=== PATIENT | male | born 1960 | race Caucasian/White ===

== ENCOUNTER 2019-12-14 19:06 | Emergency (ER) | payer BC ==
[2019-12-14] MEDS ORDERED: Meclizine HCl 25 MG TAB ONE (19:47)
[2019-12-14 20:10] LABS: #Eosinphils 0.2 thou/uL (0.0-0.7); #Lymphocytes 1.6 thou/uL (1.20-3.40); #Monocytes 0.4 thou/uL (0.11-0.59); %Basophils 0.5 % (0.0-1.0); %Eosinophils 2.5 % (0.0-10.0); %Lymphocytes 22.3 % (21.0-51.0); %Monocytes 5.6 % (0.0-10.0); %Neutrophils 69.2 % (42.0-75.0); Hemoglobin 14.8 g/dL (14.0-18.0); Mean Corpuscular HGB CONC 34.6 g/dL (32.0-36.0); Mean Corpuscular Hemoglobin 32.3 pg (27.0-31.0); Mean Corpuscular Volume 93.5 fL (78.0-98.0); Mean Platelet Volume 6.8 fL (7.4-10.4); Platelet Count 213 thou/uL (130-400); RBC Distribution Width 11.2 % (11.5-14.5); Red Blood Cell (RBC) Count 4.59 mill/uL (4.70-6.10); White Blood Cell (WBC) Count 7.2 thou/uL (4.8-10.8)
--- NOTE | 2019-12-14 20:14 | CT ---
CT Brain WO Con History: Dizziness with blurred vision Comparison: None. Findings: No acute hemorrhage or infarct. No midline shift or mass effect. Very subtle increased dens ity along the left inferior temporal sulcus likely are due to vessels seen in profile and much less likely hemorrhage. Calvarium is intact. Mild mucosal thickening of the ethmoids. Mastoids are clear. Impression: 1. No acute infarct. 2. Mild ethmoid sinus disease. 3. Likely vessels seen in profile left inferior temporal sulcus axial image 11 and much less likely s ubarachnoid hemorrhage.
[2019-12-14 21:17] LABS: ALT (SGPT) 24 U/L (8-55); AST (SGOT) 16 U/L (5-34); Albumin 4.4 g/dL (3.4-4.8); Alkaline Phosphatase 43 U/L (40-110); Anion Gap 15 mmol/L (10-20); BUN (Urea Nitrogen) 16 mg/dL (8.4-25.7); Bilirubin, Total 0.6 mg/dL (0.2-1.2); Calc. Creatinine Clearance 0 mL/min (70-130); Calcium 9.1 mg/dL (7.8-10.44); Carbon Dioxide 22 mmol/L (23-31); Chloride 104 mmol/L (98-107); Estimated GFR-MDRD 79; Globulin 2.6 g/dL (2.4-3.5); Glucose 152 mg/dL (80-115); Potassium 3.8 mmol/L (3.5-5.1); Sodium 137 mmol/L (136-145)
== END 2019-12-14 21:52 | disposition home or self-care (01) ==
LOC: ERS 19:06
DX: H81.399 Other peripheral vertigo, unspecified ear (principal); I10 Essential (primary) hypertension; Z79.899 Other long term (current) drug therapy
CPT/HCPCS: 36415; 70450; 80053; 84484; 85025; 93005

== ENCOUNTER 2024-01-09 14:17 | Outpatient (CLI) | payer BC ==
[2024-01-09 15:58] LABS: #Basophils 0.05 10x3/uL (0.0-0.2); %Basophils 0.8 % (0.0-1.0); %Eosinophils 5.1 % (0.0-10.0); %Lymphocytes 35.4 % (21.0-51.0); %Monocytes 9.9 % (0.0-10.0); %Neutrophils 48.3 % (42.0-75.0); Hematocrit 39.6 % (42.0-52.0); Hemoglobin 13.8 g/dL (14.0-18.0); Mean Corpuscular HGB CONC 34.8 g/dL (32.0-36.0); Mean Corpuscular Hemoglobin 31.7 pg (27.0-31.0); Mean Corpuscular Volume 90.8 fL (78.0-98.0); Mean Platelet Volume 8.8 fL (7.4-10.4); Platelet Count 266 10x3/uL (130-400); RBC Distribution Width 12.5 % (11.5-14.5); Red Blood Cell (RBC) Count 4.36 mill/uL (4.70-6.10)
[2024-01-09 16:22] LABS: Anion Gap 10 mmol/L (10-20); BUN (Urea Nitrogen) 15 mg/dL (8.4-25.7); Calc. Creatinine Clearance 0 mL/min (70-130); Calcium 9.3 mg/dL (7.8-10.44); Carbon Dioxide 25 mmol/L (23-31); Chloride 108 mmol/L (98-107); Estimated GFR 70; Glucose 130 mg/dL (80-115); Potassium 3.8 mmol/L (3.5-5.1); Sodium 139 mmol/L (136-145)
== END 2024-01-09 14:18 | disposition home or self-care (01) ==
LOC: LABBT 14:17
PROVIDERS: ATTEND Orthopaedic Surgery
DX: Z01.818 Encounter for other preprocedural examination (principal); G56.02 Carpal tunnel syndrome, left upper limb
CPT/HCPCS: 80048; 85025; 93005; 93010

== ENCOUNTER → 2024-01-11 | Day surgery (SDC) | payer BC ==
[2024-01-09 14:54] VITALS: BMI 28.5
[~2024-01-11] MED LIST: Bacitracin Zinc Ointment 30 gm TUBE ONE; Bupivacaine 0.25% HCL 30 ML VIAL ONE; CEFAZOLIN 2 GM VIAL ONE; Dexamethasone 20 MG/5 ML VIAL ONE; Ketorolac Tromethamine 30 MG (1 mL) VIAL ONE; Lidocaine 1% PF 5 ML VIAL ONE; Morphine 2 MG/ML VIAL ONE; Ondansetron PF 4 MG/2 ML Vial ONE; PROPOFOL 200 MG/20 ML VIAL ONE; Sterile Water 10 ML ONE; fentaNYL PF 100 MCG/2 ML SYRINGE ONE
== END ==
LOC: SDC 07:32
PROVIDERS: ATTEND Orthopaedic Surgery
PROC: 01N40ZZ Release Ulnar Nerve, Open Approach (ICD-10-PCS; principal; 2024-01-11)
PROC: 01N50ZZ Release Median Nerve, Open Approach (ICD-10-PCS; principal; 2024-01-11)
DX: G56.02 Carpal tunnel syndrome, left upper limb (principal); G56.22 Lesion of ulnar nerve, left upper limb; M75.81 Other shoulder lesions, right shoulder; M19.011 Primary osteoarthritis, right shoulder; I48.91 Unspecified atrial fibrillation; I10 Essential (primary) hypertension; Z98.890 Other specified postprocedural states; Z79.899 Other long term (current) drug therapy
CPT/HCPCS: A6223; C1889; J0665; J1100; J1885; J2272; J2405; J2704